=== PATIENT | female | born 1940 | race Caucasian/White ===

== ENCOUNTER → 2017-10-29 | Outpatient (CLI) | payer OTHER, BC ==
[~2017-10-29] MED LIST: ANT25 PO; ASPI81TA28 PO; CITA40TA4 PO; CYCL10TA6 PO; GLC500 PO; LEVO125T5 PO; LISI-461 PO; MULTCAP98 PO; SIMV-151 PO
--- NOTE | 2017-10-30 08:03 | MAMMOGRAPHY REPORT ---
BILATERAL DIGITAL SCREENING MAMMOGRAM TOMOSYNTHESIS WITH CAD: 10/29/2017 CLINICAL HISTORY: Routine screening examination. TECHNIQUE: Breast tomosynthesis in addition to standard 2D mammography was performed. Current study was also evaluated with a Computer Aided Detection (CAD) system. COMPARISON: Comparison is made to exams dated: 07/23/2016 mammogram, 07/20/2015 mammogram, 06/09/2014 mammogram, 06/08/2013 mammogram, 05/25/2011 mammogram, and 05/24/2010 mammogram - [facility]. BREAST COMPOSITION: There are scattered areas of fibroglandular density in both breasts. FINDINGS: There are benign scattered benign round and rim calcifications in both breasts. No suspic ious mass, architectural distortion or cluster of microcalcifications is seen. IMPRESSION: ACR BI-RADS CATEGORY 2: BENIGN There is no mammographic evidence of malignancy. A 1 year screening mammogram is recommended. The pa tient will receive written notification of the results. Approximately 10% of breast cancers are not detected with mammography. A negative mammographic report should not delay biopsy if a clinically suggestive mass is present. Xiao Clemente M.D. ay/:10/29/2017 16:15:51 Industrial Illuminating Engineer: Radha DIAZ(Lennox)(Lizeth), [facility] letter sent: Normal 1/2 BI-RADS Code: ACR BI-RADS Category 2: Benign
== END | disposition home or self-care (01) ==
LOC: C.MAMM 13:23
PROVIDERS: ATTEND Physician Assistant
DX: Z12.31 Encounter for screening mammogram for malignant neoplasm of breast (principal)